=== PATIENT | male | born 1965 | race American Indian/Alaskan Native ===

== ENCOUNTER 2018-07-12 10:50 | Emergency (ER) | payer OTHER ==
[2018-07-12 11:48] VITALS: BP 158/102; PULSE 99; RESP 16; TEMP 98; O2SAT 98
--- NOTE | 2018-07-12 11:55 | ED PDOC ---
Arrival/HPI - General Chief Complaint: Pain, Chronic Time Seen by Provider: 07/12/18 11:10 Historian: Patient - History of Present Illness Narrative History of Present Illness (Text): 07/12/18 11:10 53 year old male, with past medical history of hypertension, presents to the ED complaining of discomfort to left sided chin since March. Patient reports injury to the site with a hammer in March and was seen at [facility] in [place], [place] at the time, where patient was asked to follow-up with a surgeon for a sustained hematoma to his left chin. As per patient, due to insurance complications, patient was unable to follow-up with a physician since the incident. Patient now informs pain to the area and requests only pain medication. Patient denies any other associated somatic complaints. Patient denies any fevers, chills, headache, dizziness, chest pain, shortness of breath, dyspnea on exertion, cough, abdominal pain, nausea, vomiting, diarrhea, back pain, neck pain, or any other complaints. Time/Duration: > month Symptom Onset: Gradual Symptom Course: Unchanged Activities at Onset: Light Context: Home Past Medical History - Provider Review Nursing Documentation Reviewed: Yes - Cardiac Hx Hypertension: Yes - Psychiatric Hx Substance Use: No Family/Social History - Physician Review Nursing Documentation Reviewed: Yes Family/Social History: Unknown Family HX Smoking Status: Never Smoked Hx Alcohol Use: No Hx Substance Use: No Allergies/Home Meds Allergies/Adverse Reactions: Allergies No Known Allergies Allergy (Unverified 07/12/18 11:52) Review of Systems - Physician Review All systems were reviewed & negative as marked: Yes - Review of Systems Constitutional: absent: Fevers ENT: Other (left sided chin swelling secondary to hematoma) Respiratory: absent: SOB, Cough Cardiovascular: absent: Chest Pain Gastrointestinal: absent: Abdominal Pain, Diarrhea, Nausea, Vomiting Musculoskeletal: absent: Back Pain, Neck Pain Skin: absent: Rash Neurological: absent: Headache, Dizziness Physical Exam Vital Signs Reviewed: Yes Vital Signs Temp Pulse Resp BP Pulse Ox 07/12/18 11:39 98 F 99 H 16 158/102 H 98 07/12/18 11:21 98.2 F 86 18 139/106 H 100 Temperature: Afebrile Blood Pressure: Hypertensive Pulse: Regular Respiratory Rate: Normal Appearance: Positive for: Well-Appearing, Non-Toxic, Comfortable Pain Distress: None Mental Status: Positive for: Alert and Oriented X 3 - Systems Exam Head: Present: Atraumatic, Normocephalic Pupils: Present: PERRL Extroacular Muscles: Present: EOMI Conjunctiva: Present: Normal Mouth: Present: Other (large swelling noted to left side of the face. No changes to speech noted. ) Neck: Present: Normal Range of Motion Respiratory/Chest: Present: Clear to Auscultation, Good Air Exchange. No: Respiratory Distress, Accessory Muscle Use Cardiovascular: Present: Regular Rate and Rhythm, Normal S1, S2. No: Murmurs Abdomen: No: Tenderness, Distention, Peritoneal Signs Upper Extremity: Present: Normal Inspection. No: Cyanosis, Edema Lower Extremity: Present: Normal Inspection. No: Edema Neurological: Present: GCS=15, CN II-XII Intact, Speech Normal Skin: Present: Warm, Dry, Normal Color. No: Rashes Psychiatric: Present: Alert, Oriented x 3, Normal Insight, Normal Concentration Medical Decision Making ED Course and Treatment: 07/12/18 11:15 Impression: 53 year old male presents to the Emergency department requesting pain medication. reports h/ o of chronic hematoma. only requesting analgesia in er. refuses any further w/u. noted numour narcotic rx from numerious providers across state. susepct. drug seeking behavior. Plan: -- Tylenol -- Reassess and disposition Prior Visits: Notes and results from previous visits were reviewed. Progress Notes: 07/12/18 11:15 [place] PNP reviewed, shows multiple prescriptions of oxycodone received by patient from multiple locations. Patient will be given high dose Tylenol for pain. 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 07/05/2018 3 07/05/2018 ACETAMINOPHEN-COD #3 TABLET 12.0 1 RE [facility] [id number] RITE ([id number]) 0 54.0 MME Medicaid [place] 06/16/2018 3 06/16/2018 OXYCODONE-ACETAMINOPHEN 5-325 7.0 1 [facility] [id number] THRIF ([id number]) 0 52.5 MME Medicaid [place] 05/31/2018 3 05/31/2018 OXYCODONE-ACETAMINOPHEN 5-325 12.0 4 MARCELLUS [id number] RITE ([id number]) 0 22.5 MME Medicaid [place] 05/24/2018 4 05/24/2018 OXYCODONE-ACETAMINOPHEN 5-325 12.0 3 MO GAR [id number] WELCO ([id number]) 0 Private Pay [place] 05/20/2018 3 05/20/2018 ACETAMINOPHEN-COD #3 TABLET 12.0 1 RE ANITA [id number] RITE ([id number]) 0 54.0 MME Medicaid [place] 05/04/2018 3 05/04/2018 OXYCODONE-ACETAMINOPHEN 5-325 30.0 7 AN REMBERTO [id number] [facility] ([id number]) 0 32.14 MME Medicaid [place] 05/01/2018 3 05/01/2018 ACETAMINOPHEN-COD #3 TABLET 12.0 2 CH CON [id number] [facility] ([id number]) 0 27.0 MME Medicaid [place] 04/28/2018 4 04/27/2018 OXYCODONE-ACETAMINOPHEN 5-325 20.0 4 PA BRYANT [id number] THRIF (1964) 0 Comm Ins [place] 04/20/2018 3 04/19/2018 OXYCODONE-ACETAMINOPHEN 5-325 20.0 5 RO AKH [id number] RITE ([id number]) 0 30.0 MME [place] 04/14/2018 3 04/14/2018 OXYCODONE-ACETAMINOPHEN 5-325 20.0 5 RO AKH [id number] [facility] ([id number]) 0 30.0 MME [place] 04/09/2018 3 04/08/2018 OXYCODONE-ACETAMINOPHEN 5-325 20.0 5 [place] [id number] [place] ([id number][place] 0 30.0 [place] Private [place] 04/07/2018 3 04/07/2018 OXYCODONE HCL 5 MG TABLET 10.0 3 DI MEN [id number] SHOPR ([id number]) 0 25.0 MME Comm Ins [place] 04/02/2018 3 04/02/2018 OXYCODONE-ACETAMINOPHEN 5-325 20.0 5 RO AKH [id number] [place] ([id number]) 0 30.0 [place] 03/27/2018 3 03/27/2018 OXYCODONE-ACETAMINOPHEN 5-325 20.0 5 [place] TAMMY [id number] [place] ([id number]) 0 30.0 MME [place] 03/24/2018 4 03/23/2018 OXYCODONE-ACETAMINOPHEN 5-325 12.0 4 EM UY, [id number] [facility] ([id number]) 0 Private Pay [place] 03/22/2018 3 03/22/2018 OXYCODONE-ACETAMINOPHEN 5-325 12.0 3 BI JOSY [id number] [place] ([id number]) 0 30.0 MME [place] 03/16/2018 3 03/16/2018 OXYCODONE-ACETAMINOPHEN 5-325 30.0 7 [facility] [id number] [place] ([id number]) 0 32.14 MME [place] 03/13/2018 1 03/13/2018 oxycodone-acetaminophen 5-325 mg tablet 12 3 [facility] [place] 03/12/2018 1 03/12/2018 hydrocodone-acetaminophen 5-325 mg tablet 5 5 [facility] [place] 03/07/2018 3 03/07/2018 OXYCODONE-ACETAMINOPHEN 5-325 20.0 3 [facility] [id number] [place] ([id number]) 0 50.0 [place] 03/02/2018 3 03/02/2018 OXYCODONE-ACETAMINOPHEN 5-325 24.0 5 PA DEJAN [id number] THRIF ([id number]) 0 36.0 MME Medicaid [place] 02/27/2018 3 02/27/2018 OXYCODONE-ACETAMINOPHEN 5-325 8.0 2 [facility] [id number] [place] ([id number]) 0 30.0 [place] 02/11/2018 3 02/11/2018 MORPHINE SULFATE IR 15 MG TAB 70.0 23 TE GUL [id number] RITE ([id number]) 0 45.65 MME [place] 01/14/2018 3 01/14/2018 OXYCODONE HCL 15 MG TABLET 90.0 30 TE GUL [id number] RITE ([id number]) 0 67.5 MME [place] 12/17/2017 3 12/17/2017 OXYCODONE HCL 15 MG TABLET 90.0 30 TE GUL [id number] RITE ([id number]) 0 67.5 MME Medicaid [place] BEATRICE WAHL, : 1965, Created On: 07/12/2018 Filled ID Written Drug QTY Days Prescriber Rx # Pharmacy* Refills Daily Dose 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 11/19/2017 3 11/19/2017 OXYCODONE HCL 15 MG TABLET 90.0 30 TE GUL [id number] [facility] ([id number]) 0 67.5 [place] 10/22/2017 3 10/22/2017 OXYCODONE HCL 15 MG TABLET 90.0 30 TE GUL [id number] [facility] ([id number]) 0 67.5 [place] 09/24/2017 2 09/24/2017 OXYCODONE-ACETAMINOPHEN 5-325 150.0 25 TE GUL [id number] [facility] ([id number]) 0 45.0 MME [place] 09/20/2017 3 09/20/2017 OXYCODONE-ACETAMINOPHEN 5-325 20.0 4 [facility] [id number] [place] ([id number]) 0 37.5 MME [place] 08/18/2017 3 08/17/2017 OXYCODONE-ACETAMINOPHEN 5-325 150.0 18 [facility] [id number] RITE ([id number]) 0 62.5 MME Medicaid [place] 07/17/2017 3 07/17/2017 OXYCODONE-ACETAMINOPHEN 5-325 150.0 20 [facility] [id number] [facility] ([id number]) 0 56.25 MME Comm Ins [place] *Pharmacy is created using a combination of pharmacy name and the last four digits of the pharmacy license number. *Per CDC guidance, the MME conversion factors prescribed or provided as part of medication-assisted treatment for opioid use disorder should not be used to benchmark against dosage thresholds meant for opioids prescribed for pain. Buprenorphine products have no agreed upon morphine equivalency, and as partial opioid agonists, are not expected to be associated with overdose risk in the same dose-dependent manner as doses for full agonist opioids. MME = morphine milligram equivalents. mg = dose in milligrams. Prescribers Name Address [facility] Zip Phone KEITH JARAMILLO [address] [place] [address] [phone] MD ENRIKE, [facility] [address] [facility] [address] GIANFRANCO MOELLER, MS, ABIMAEL Monaco [address] [place] [address] [phone] DO ZAHIDA, JUANITA Mayers [address] [facility] [address] [phone] LIVIER FRANCO, AMADOU [address] [facility] [address] MELINA ELDRIDGE, JOSE ANTONIO J [address] [facility] [address] DANIELE CHEN, RITA [address] [place] [address] [phone] GIANFRANCO SNYDER, THADDEUS [address] [place] [address] LIVIER PURDY, MINO Connell [address] [facility] [address] DO CARLSON PATRICK [address] [place] [address] FLORPETE [address] [facility] [place] [address] ANTOINE, KISHOR [facility] [address] ANNMARIE, SHAY [address] [place] [address] [phone] - Scribe Statement The provider has reviewed the documentation as recorded by the Scribe Lindsay Mccurdy. All medical record entries made by the Scribe were at my direction and personally dictated by me. I have reviewed the chart and agree that the record accurately reflects my personal performance of the history, physical exam, medical decision making, and the department course for this patient. I have also personally directed, reviewed, and agree with the discharge instructions and disposition. Disposition/Present on Arrival - Present on Arrival Any Indicators Present on Arrival: No History of DVT/PE: No History of Uncontrolled Diabetes: No Urinary Catheter: No History of Decub. Ulcer: No History Surgical Site Infection Following: None - Disposition Have Diagnosis and Disposition been Completed?: Yes Diagnosis: Hematoma, Drug-seeking behavior Disposition: HOME/ ROUTINE Disposition Time: 11:30 Condition: STABLE Discharge Instructions (ExitCare): Contusion (DC) Additional Instructions: please follow up with ent. return to er with worsening symptosm or concerns. Referrals: [facility] [Outside] - Follow up with primary [facility] [Outside] - Follow up with primary Shiv Waters DO [Staff Provider] - Follow up with primary Forms: [employer] (Sami)
== END 2018-07-12 12:32 | disposition home or self-care (01) ==
LOC: ED 10:50
DX: S00.83XA Contusion of other part of head, initial encounter (principal); X58.XXXA Exposure to other specified factors, initial encounter; Z76.5 Malingerer [conscious simulation]; I10 Essential (primary) hypertension